=== PATIENT | male | born 1975 | race Caucasian/White ===

== ENCOUNTER 2019-12-26 12:16 | Outpatient (CLI) | payer OTHER, SELFPAY ==
[2019-12-26 12:31] LABS: PH Semen 9.5 (7.0-8.0)
[2019-12-26 12:38] LABS: Pathology Referral Yes; Sperm Immotility 90 % (50-60); Sperm Non-Progressive Motility 10 % (5-10); Sperm Progressive Motility 0 % (31-34); White Blood Count Semen 0-4 /hpf
[2019-12-26 13:14] LABS: Side 1 17; Side 2 16; Sperm Count 16.5 mill/mL (40-160)
[2019-12-26 13:16] LABS: Side WITHIN 10% 6; Sperm Vitality-% Live Sperm 48 %; Viscosity Semen High Viscosity
== END 2019-12-26 12:17 | disposition home or self-care (01) ==
PROVIDERS: Visit Provider Obstetrics & Gynecology
DX: N46.8 Other male infertility (principal); Z98.890 Other specified postprocedural states
CPT/HCPCS: 80500; 89320

== ENCOUNTER → 2020-02-29 08:45 | Outpatient (BNVA) | payer OTHER, SELFPAY | PROVIDERS: Referring Provider Obstetrics & Gynecology; Visit Provider Urology | DX: N46.11 Organic oligospermia (principal); R86.8 Other abnormal findings in specimens from male genital organs; N46.9 Male infertility, unspecified | CPT/HCPCS: 83001; 83002; 84403 ==

== ENCOUNTER 2020-05-23 11:07 | Outpatient (CLI) | payer OTHER, SELFPAY ==
[2020-05-23 11:54] LABS: Sperm Count 11.4 mill/mL (40-160)
[2020-05-23 11:55] LABS: Side WITHIN 10% 7
[2020-05-23 11:56] LABS: PH Semen 9.5 (7.0-8.0); Side 1 118; Side 2 110; Viscosity Semen High Viscosity
[2020-05-23 11:57] LABS: Sperm Immotility 90 % (50-60); Sperm Non-Progressive Motility 5 % (5-10); Sperm Progressive Motility 5 % (31-34); White Blood Count Semen 0-4 /hpf
[2020-05-23 12:02] LABS: Pathology Referral Yes; Sperm Vitality-% Live Sperm 38 %
== END 2020-05-23 11:08 | disposition home or self-care (01) ==
PROVIDERS: Visit Provider Urology
DX: N46.9 Male infertility, unspecified (principal); N46.11 Organic oligospermia
CPT/HCPCS: 80500; 89320

== ENCOUNTER → 2022-05-04 15:33 | Outpatient (BNVA) | payer OTHER, SELFPAY | PROVIDERS: Visit Provider Registered Nurse Neonatal Intensive Care | DX: M79.672 Pain in left foot (principal); M77.32 Calcaneal spur, left foot | CPT/HCPCS: 73630 ==

== ENCOUNTER → 2022-07-05 08:40 | Outpatient (BNVA) | payer OTHER, SELFPAY | PROVIDERS: PCP Family Medicine; Visit Provider Family Medicine | DX: Z00.00 Encounter for general adult medical examination without abnormal findings (principal); R06.83 Snoring | CPT/HCPCS: 80053; 80061; 83036 ==

== ENCOUNTER → 2023-02-14 11:14 | Outpatient (BNVA) | payer OTHER, SELFPAY | PROVIDERS: PCP Family Medicine; Visit Provider Family Medicine | DX: R06.83 Snoring (principal); G47.33 Obstructive sleep apnea (adult) (pediatric); R73.9 Hyperglycemia, unspecified | CPT/HCPCS: 80053; 83036 ==

== ENCOUNTER → 2023-04-09 14:50 | Outpatient (BNVA) | payer OTHER, SELFPAY | PROVIDERS: PCP Family Medicine; Visit Provider Podiatrist Foot & Ankle Surgery | DX: M79.671 Pain in right foot (principal); M72.2 Plantar fascial fibromatosis | CPT/HCPCS: 73630 ==

== ENCOUNTER 2023-04-16 12:00 | Outpatient (CLI) | payer OTHER, SELFPAY | END 2023-04-16 12:01 | disposition home or self-care (01) | LOC: SLEEP 04-17 08:47 | PROVIDERS: PCP Family Medicine; Visit Provider Family Medicine | DX: G47.33 Obstructive sleep apnea (adult) (pediatric) (principal); G47.36 Sleep related hypoventilation in conditions classified elsewhere; R06.83 Snoring | CPT/HCPCS: G0399 ==

== ENCOUNTER → 2024-12-15 14:45 | Outpatient (BNVA) | payer OTHER, SELFPAY | PROVIDERS: PCP Family Medicine; Visit Provider Podiatrist Foot & Ankle Surgery | DX: M77.8 Other enthesopathies, not elsewhere classified (principal) | CPT/HCPCS: 73630 ==